=== PATIENT | male | born 2000 | race Hispanic/Latino ===

== ENCOUNTER 2020-12-17 15:34 | Emergency (ER) | payer OTHER, SELFPAY ==
[2020-12-17 15:59] VITALS: BP 155/94; PULSE 102; RESP 18; TEMP 36.9; O2SAT 99
--- NOTE | 2020-12-17 16:07 | ED.DENTAL ---
HPI - Dental/Oral General Chief complaint: Dental/Oral Stated complaint: Tooth Pain Time Seen by Provider: 12/17/20 16:07 Source: patient Mode of arrival: ambulatory Limitations: no limitations History of Present Illness HPI Narrative: Sergio Mccall is a 20 yo with no PMH is here for dental pain in the left lower premolar. He is rating his pain is 10 has been growing slowly from 4 days. He has seen a dentist who states that he is going to need a root canal or to have it extracted. Discussed with patient that extraction at that level will cause that he is to shift so he needs to investigate a bridge or some other way to manage that space Related Data Allergies Allergy/AdvReac Type Severity Reaction Status Date / Time NKDA Allergy Unknown Uncoded 05/08/17 13:09 Review of Systems Review of Systems: Narrative: CONSTITUTIONAL: Denies fever, chills, sweats. EYES: Denies visual changes, redness, discharge. ENT: Denies rhinorrhea, congestion, sore throat, otalgia. Left lower tooth pain tooth 27 with bump on gum CARDIOVASCULAR: Denies chest pain, palpitations, edema. RESPIRATORY: Denies dyspnea, wheezing, cough GASTROINTESTINAL: Denies abdominal pain, nausea, vomiting, diarrhea. GENITOURINARY: Denies dysuria, hematuria, abnormal discharge SKIN: Denies rash or itching. NEUROLOGIC: Denies numbness, or focal weakness. PSYCHIATRIC: Denies anxiety or depression. PMFSH Past Medical History Medical History No acute medical problems Family History Family History Other No acute medical problems Social History Social History (Updated 12/17/20 @ 16:18 by Loyda Gale CNP) Smoking status: Never smoker Alcohol intake: current Comments At time of signature, I agree with nursing past medical, surgical, social and family history. There is no relevant family history pertinent to the presenting complaint. Blood pressure elevated tachycardic to the pain; patient is aware that his vital signs are elevated says he is had difficulty managing pain in the last 4 days Exam Narrative: Exam Narrative: GENERAL: This is a well-nourished, well-developed patient, in moderate distress. HEAD: normocephalic, atraumatic. EYES: Sclera clear/white. Vision is grossly intact. EARS: External ears normal Hearing grossly intact. NOSE: External nose normal without nasal discharge, nares without redness, no rhinorrhea. THROAT: Mucous membranes moist, tooth 27 has bump on lower gum tooth is not loose but lots of gum swelling, patient complains of rating pain at jawline NECK: Neck supple, non-tender CARDIOVASCULAR: Regular rate and rhythm without murmurs, gallops, or rubs. RESPIRATORY: Clear to auscultation. Breath sounds equal bilaterally. No wheezes, rales, or rhonchi. GASTROINTESTINAL: Abdomen soft, non-tender, SKIN: warm, intact with no suspicious lesions or rash, good texture and turgor. NEURO: awake, alert, and oriented to person, place and time. There were no obvious focal neurologic abnormalities. Steady gait EXTREMITIES: Normal range of motion. BACK: Nontender without deformity Course Course Emergency Course: Patient here with premolar left lower tooth pain Procedure open abscess on gumline with 18-gauge needle; started on penicillin, [place], salt water gargles Has appoint with dentist in 2 weeks Vital Signs Vital signs: Vital Signs Temperature 98.4 F 12/17/20 15:59 Pulse Rate 102 H 12/17/20 15:59 Respiratory Rate 18 12/17/20 15:59 Blood Pressure 155/94 H 12/17/20 15:59 Pulse Oximetry 99 12/17/20 15:59 Temperature 98.4 F 12/17/20 15:59 Pulse Rate 102 H 12/17/20 15:59 Respiratory Rate 18 12/17/20 15:59 Blood Pressure 155/94 H 12/17/20 15:59 Pulse Oximetry 99 12/17/20 15:59 Procedures Abscess I/D gumline tooth 27: Date of Incision: 12/17/20 Time of Incision: 16:13
== END 2020-12-17 16:30 | disposition home or self-care (01) ==
PROVIDERS: Emergency Provider Nurse Practitioner
DX: K04.7 Periapical abscess without sinus (principal)
CPT/HCPCS: 41800; 99213; G0463

== ENCOUNTER 2021-01-01 15:20 | Emergency (ER) | payer OTHER, SELFPAY ==
[2021-01-01 15:29] VITALS: BP 120/72; PULSE 84; RESP 16; TEMP 37.1; O2SAT 100
--- NOTE | 2021-01-01 15:46 | ECG_ITS ---
Measurements Intervals [place] Rate: 89 P: 79 RI: 156 QRS: 78 QRSD: 98 T: 30 QT: 350 QTc: 427 Interpretive Statements SINUS RHYTHM POSSIBLE LEFT ATRIAL ENLARGEMENT INCOMPLETE RIGHT BUNDLE BRANCH BLOCK BASELINE ARTIFACT- II, III, AVL, AVF BORDERLINE ECG Electronically Signed On 01-02-2021 16:24:31 CDT by Kwasi Hastings D.O.
--- NOTE | 2021-01-01 16:18 | ED.ARRPALP ---
HPI - Arrhythmia/Palpitations General Chief Complaint: Arrhythmia/Palpitations Stated Complaint: IRREGULAR HEART BEATS Source: patient and RN notes reviewed Limitations: no limitations History of Present Illness HPI narrative: The patient, a non-smoker/nondrinker, presents with palpitations. Patient states he has a least half week history of intermittent palpitations that can last up to all day . No fever, shortness of breath, calf pain/edema, presyncope.; He has been athletic in the past -wrestling in high school, and currently working out frequently without symptoms. He takes his pulse during these episodes and its been ranging between 60 and 70, he attributes onset of symptoms due to penicillin therapy for recent tooth ache-which has improved. Related Data Allergies Allergy/AdvReac Type Severity Reaction Status Date / Time NKDA Allergy Unknown Uncoded 01/01/21 15:45 Review of Systems Review of Systems: Narrative: General/Constitutional: No weight loss,fever Eyes: N0: Redness,discharge Ears/Nose/Throat: No: Epistaxis,ear discharge Respiratory: Denies: Hemoptysis Gastrointestinal: No Vomiting, Bleeding-rectal Skin: No Lumps, eruption Neurologic: No Focal Weakness,Sz Hematologic: Denies: Petechiae/Purpura Psychiatric: No: Suicida ideationl All Other Systems: Reviewed and Negative [facility] Past Medical History Medical History No acute medical problems Family History Family History Other No acute medical problems Social History Social History (Updated 12/17/20 @ 16:18 by Loyda Gale CNP) Smoking status: Never smoker Alcohol intake: current Gender identity (if verbalized by the patient): Male Comments At time of signature, agree with nursing past medical, surgical, social and family history. There is no relevant family history pertinent to the presenting complaint Exam Narrative: Exam Narrative: General Appearance: Well appearing, No distress EYE: PERRLA, Conjunctiva clear Ears: External ear normal Nose: Normal nose Mouth/Throat: Normal appearing, Normal lips Neck: Supple Respiratory: Airway patent, No respiratory distress Cardiovascular: RRR Abdomen: Soft, Non-tender, Musculoskeletal: Full ROM Skin: Warm, Dry Neurological: A&O x3, CN II-X intact Psychiatric: Normal mood, Normal affect Course Course Emergency Course: EKG: BORDERLINE -NSR at 89 bpm, possible LAE, incomplete RBBB, axis 80 deg Vital Signs Vital signs: Vital Signs Temperature 98.7 F 01/01/21 15:29 Pulse Rate 84 01/01/21 15:29 Respiratory Rate 16 01/01/21 15:29 Blood Pressure 120/72 01/01/21 15:29 Pulse Oximetry 100 01/01/21 15:29 Temperature 98.7 F 01/01/21 15:29 Pulse Rate 84 01/01/21 15:29 Respiratory Rate 16 01/01/21 15:29 Blood Pressure 120/72 01/01/21 15:29 Pulse Oximetry 100 01/01/21 15:29 Discharge Plan Discharge Clinical Impression: Palpitations Insomnia Qualifiers: Insomnia type: unspecified Qualified Code(s): G47.00 - Insomnia, unspecified Patient Disposition: Home, Self-Care Condition: Stable Instructions: Heart Palpitations (ED), Insomnia (ED) Prescriptions: New trazodone 50 mg tablet 25 mg PO HS PRN (Reason: insomnia) Qty: 14 RF: 0 No Action ibuprofen 600 mg tablet 600 mg PO Q6H PRN (Reason: pain) Qty: 30 RF: 0 Follow-up/Referrals: UNKNOWN,DOCTOR [Primary Care Provider] -
== END 2021-01-01 16:14 | disposition home or self-care (01) ==
PROVIDERS: Emergency Provider Emergency Medicine
DX: R00.2 Palpitations (principal); G47.00 Insomnia, unspecified; I45.10 Unspecified right bundle-branch block
CPT/HCPCS: 93005; 99213; G0463

== ENCOUNTER 2022-07-07 19:09 | Emergency (ER) | payer OTHER, SELFPAY ==
--- NOTE | ~2022-07-07 | US_ITS ---
EXAMINATION: US scrotum doppler DATE: 07/07/2022 21:23 INDICATION: Right testicular pain. TECHNIQUE: Grayscale and Doppler ultrasound images of the testes were obtained. COMPARISON: None. FINDINGS: The right testis measures 4.2 x 2.3 x 2.9 cm. The left testis measures 4.2 x 2.0 x 2.7 cm. There is normal vascular flow to both testes. The right epididymis is normal with normal vascular jim w. The left epididymis is normal with normal vascular flow. There is no varicocele or hydrocele. IMPRESSION: 1. Normal testes. Reviewed, dictated and finalized at location A. IMPRESSION: 1. Normal testes.
[2022-07-07 19:11] VITALS: BP 136/83; PULSE 117; RESP 18; TEMP 36.3; O2SAT 97
[2022-07-07 19:38] VITALS: BP 124/70; PULSE 74; RESP 16; O2SAT 100
[2022-07-07 19:38] LABS: Appearance Urine Clear (Clear); Bilirubin Urine Negative (Negative); Blood Urine Negative (Negative); Color Urine Yellow (Yellow); Glucose Urine UA Negative (Negative); Ketones Urine Negative (Negative); Leukocyte Esterase Ur Negative LEU/UL (Negative); Nitrate Urine Negative (Negative); Protein Urine Negative (Negative); Urobilinogen Urine 0.2 mg/dL (<2.0)
[2022-07-07 19:45] LABS: Amorphous Sediment Urine Few; Mucus Urine Rare /lpf; WBC Urine 0-3 /hpf
[2022-07-07 19:50] LABS: Add Urine Microscopic? NO
--- NOTE | 2022-07-07 20:10 | ED.MALEGU ---
HPI - Male Genitourinary General Chief complaint: Urogenital-Male Stated complaint: Right testicular pain since Wed Time Seen by Provider: 07/07/22 19:30 History of Present Illness HPI Narrative: Patient is a 21-year-old male who presents ER with right-sided testicular pain. Ongoing for 3 days. No urinary frequency urgency or dysuria. No pain in his abdomen or radiating to his flank. No fevers or chills or sweats. No nausea or vomiting. No sexual activity since February/March of this year. No urethral discharge. Has not noticed any swelling. No trauma. Has been taking ibuprofen without improvement. He did develop some diarrhea after taking ibuprofen. Related Data Allergies Allergy/AdvReac Type Severity Reaction Status Date / Time NKDA Allergy Unknown Uncoded 01/01/21 15:45 Review of Systems Review of Systems: All systems reviewed & are unremarkable except as noted in HPI and below Constitutional: Constitutional: Denies chills and Denies fever(s) Gastrointestinal: Gastrointestinal: Denies abdominal pain, Reports diarrhea, Denies nausea and Denies vomiting Genitourinary: Genitourinary: Denies hematuria, Denies dysuria, Denies penile discharge and Reports testicular pain Musculoskeletal: Musculoskeletal: Denies back pain PMFSH Past Medical History Medical History (Updated 07/07/22 @ 22:28 by Vahid Nguyen MD) No acute medical problems Surgical History Surgical History (Updated 07/07/22 @ 20:12 by Vahid Nguyen MD) No pertinent past surgical history Family History Family History Other No acute medical problems Social History Social History (Updated 12/17/20 @ 16:18 by Loyda Gale CNP) Smoking status: Never smoker Alcohol intake: current Gender identity (if verbalized by the patient): Male Exam Narrative: GENERAL: Well-appearing, well-nourished, and in no acute distress. HEAD: Normocephalic, atraumatic. CHEST: Clear to auscultation. No respiratory distress. HEART: Regular rate and rhythm. Normal peripheral pulses. ABDOMEN: Soft, nontender, nondistended. : Normal-appearing external genitalia without swelling to the testicles. No reproducible tenderness of the testicle or spermatic cord. No urethral discharge. EXTREMITIES: Normal range of motion. No edema. SKIN: Warm, dry, no rash. NEURO: Alert and oriented x3. PSYCH: Normal mood and affect. Course Course Emergency Course: Recommend patient wear underwear that is more snug than boxers to prevent any excessive movement of the testicles. Recommend anti-inflammatory medication follow-up with PCP. Vital Signs Vital signs: Vital Signs Temperature 97.4 F L 07/07/22 19:11 Pulse Rate 117 H 07/07/22 19:11 Respiratory Rate 18 07/07/22 19:11 Blood Pressure 136/83 07/07/22 19:11 Pulse Oximetry 97 07/07/22 19:11 Temperature 97.6 F 07/07/22 21:08 Pulse Rate 78 07/07/22 21:08 Respiratory Rate 16 07/07/22 21:08 Blood Pressure 118/80 07/07/22 21:08 Pulse Oximetry 100 07/07/22 21:08 MDM - Male Genitourinary Lab Data Labs: Lab Results 07/07/22 Range/Units 19:31 Urine Color Yellow (Yellow) Urine Appearance Clear (Clear) Urine pH 7.0 (5.0-9.0) Ur Specific [place] 1.020 (1.001-1.035) Urine Protein Negative (Negative) mg/dL Urine Glucose (UA) Negative (Negative) mg/dL Urine Ketones Negative (Negative) mg/dL Ur Blood (Man) Negative (Negative) Urine Nitrate Negative (Negative) Urine Bilirubin Negative (Negative) Urine Urobilinogen 0.2 (<2.0) mg/dL Leukocyte Esterase Rfl Negative (Negative) RAY/UL Urine RBC 3-5 H (0-2) /hpf Urine WBC 0-3 /hpf Amorphous Sediment Few H (None) Urine Mucus Rare /lpf Urine Characteristics Clear Imaging Data Radiologist's impression: ITS Impressions Scrotum Ultrasound 07/07/22
[2022-07-07 21:08] VITALS: BP 118/80; PULSE 78; RESP 16; TEMP 36.4; O2SAT 100
[2022-07-07 22:00] VITALS: BP 124/76; PULSE 74; RESP 16; TEMP 36.8; O2SAT 100
== END 2022-07-07 22:45 | disposition home or self-care (01) ==
PROVIDERS: Emergency Provider Emergency Medicine
DX: N50.811 Right testicular pain (principal)
CPT/HCPCS: 76870; 81003; 93976; 99284